=== PATIENT | male | born 1985 | race Caucasian/White ===

== ENCOUNTER 2019-11-28 15:47 | Inpatient (IN) ==
[2019-11-28] MEDS ORDERED: NS 1,000 ML IV ONE (16:11)
[2019-11-28] MEDS ORDERED: D50W SYRINGE IV PRN ×2 (16:11)
[2019-11-28] MEDS ORDERED: POTASSIUM CHLORIDE 10% LIQUID PO PRN (16:11)
[2019-11-28] MEDS ORDERED: SODIUM PHOSPHATE 30 MMOL in D5W 250 ML IV PRN (16:11)
[2019-11-28] MEDS ORDERED: POTASSIUM CHLORIDE 20 MEQ/SWI 20 MEQ/100 ML IVPB IV PRN ×2 (16:11)
[2019-11-28] MEDS ORDERED: HUMULIN R IV ONE (16:11)
[2019-11-28] MEDS ORDERED: POTASSIUM CHLORIDE 20% LIQUID PO PRN (16:11)
[2019-11-28] MEDS ORDERED: MAGNESIUM SULFATE 2 GM/S.W.I. 2 GM/50 ML IVPB IV PRN (16:11)
[2019-11-28] MEDS ORDERED: SODIUM BICARBONATE 8.4% 100 MEQ in STERILE WATER INJ. 500 ML IV PRN (16:11)
[2019-11-28] MEDS ORDERED: HUMULIN R 100 UNIT in NS 100 ML IV SCH (16:15)
[2019-11-28 16:23] LABS: URINE SOURCE CLEAN CATCH
[2019-11-28 16:26] LABS: HEMATOCRIT 43.9 % (42.0-52.0); HEMOGLOBIN 15.9 g/dL (14.0-18.0); MCH 28.6 PG (27-31); MCHC 36.2 g/dL (33-37); RBC 5.56 XMIL (4.7-6.1); RDW 11.7 % (11.5-14.5); WBC 6.62 X1000 (4.8-10.8)
[2019-11-28 16:29] LABS: BILIRUBIN URINE NEGATIVE (NEGATIVE); BLOOD URINE NEGATIVE (NEGATIVE); COLOR YELLOW; GLUCOSE URINE >1000 mg/dL (NEGATIVE); KETONE URINE 40 mg/dL (NEGATIVE); LEUKOCYTES URINE NEGATIVE (NEGATIVE); NITRITE URINE NEGATIVE (NEGATIVE); PH URINE 6.5; PROTEIN URINE NEGATIVE (NEGATIVE); SP GRAVITY URINE 1.027; TURBIDITY URINE CLEAR (CLEAR); UROBILINOGEN URINE NORMAL (NORMAL)
[2019-11-28 16:34] LABS: BE 1.2 mmoll (-3.0-3.0); BLOOD TYPE ARTERIAL; HCO3-(ACT) 25.7 mmoll (20.0-26.0); METHB 1.1 % (0.0-1.5); O2(CT) 21.3 mL/dL (15.0-23.0); O2HB 93.4 % (95.0-99.0); PCO2(98.6) 37 mmHg (35-45); PO2(98.6) 77 mmHg (60-100); SAMPLE BLOOD; SAO2 97.8 % (95.0-100.0); THB 16.2 g/dL (11.5-17.4); pH(98.6) 7.44 (7.35-7.45)
[2019-11-28 16:36] LABS: MODALITY ROOM AIR
[2019-11-28 16:37] LABS: ALLEN TEST NO
[2019-11-28 16:39] LABS: UR EPITHELIAL CELLS <10 /HPF (<10); URINE BACTERIA 2+ /HPF; URINE WBC <10 /HPF (<10); URINE YEAST NONE SEEN
[2019-11-28 16:40] LABS: URINE CASTS NONE SEEN; URINE CRYSTALS NONE SEEN; URINE SMALL ROUND CELLS NONE SEEN
[2019-11-28 16:45] LABS: UR AMPHETAMINES QUAL NONE DETECTED (NONE DETECT); UR BARBITUATES QUAL NONE DETECTED (NONE DETECT); UR BENZODIAZEPIN QUAL NONE DETECTED (NONE DETECT); UR CANNABINOIDS QUAL NONE DETECTED (NONE DETECT); UR COCAINE QUAL NONE DETECTED (NONE DETECT); UR METHADONE QUAL NONE DETECTED (NONE DETECT); UR METHAMPHETAMINE QUAL NONE DETECTED (NONE DETECT); UR OPIATES QUAL NONE DETECTED (NONE DETECT); UR OXYCODONE QUAL NONE DETECTED (NONE DETECT); UR PCP QUAL NONE DETECTED (NONE DETECT); UR PROPOXYPHENE QUAL NONE DETECTED (NONE DETECT); UR TCA QUAL NONE DETECTED (NONE DETECT)
[2019-11-28 16:56] LABS: ESTIMATED GFR > 60
[2019-11-28] MEDS: NS 1,000 ML IV SCH ×2 (17:07→20:10)
[2019-11-28 17:12] LABS: AGAP 13; ALBUMIN 3.4 g/dL (3.5-5.0); ALKALINE PHOSPHATASE 695 U/L (32-122); BUN 8 mg/dL (8-22); CALCIUM 8.9 mg/dL (8.8-10.2); CHLORIDE 85 mmol/L (98-107); CK PROFILE 39 U/L (24-204); COSMO 264; CREATININE 0.3 mg/dL (0.7-1.2); GLUCOSE 380 mg/dL (70-104); GOT 2828 U/L (10-34); GPT 3362 U/L (10-44); MAGNESIUM 1.8 mg/dL (1.5-2.7); PHOSPHORUS 3.7 mg/dL (2.7-4.5); POTASSIUM 3.8 mmol/L (3.5-5.1); SODIUM 124 mmol/L (136-145); TCO2 25 mmol/L (25-35); TOTAL PROTEIN 6.9 g/dL (6.3-8.3)
[2019-11-28 17:22] LABS: ACETONE SERUM NEGATIVE (NEGATIVE)
--- NOTE | 2019-11-28 18:12 | Diag Imaging Result Doc PS360 ---
EXAM: CT ABD/PELVIS W/IV CONT ONLY 11/28/2019 HISTORY: abd pain TECHNIQUE: This exam was performed using automated exposure control, adjustment of mA or kV according to patient size, and/or use of iterative reconstruction technique. COMMENT: The current study is compared with 07/02/2017. There is no evidence of acute disease in the visualized portion of the chest. The spleen and adrenal glands are within normal limits. There is marked pericholecystic edema. There is worsened periportal adenopathy. There are no apparent stones. The liver is otherwise unremarkable. The kidneys are without evidence of hydronephrosis or mass. There is stool in the colon. Small bowel is not distended. The aorta is not distended. The pancreas is unremarkable. Pelvis: The appendix is normal in appearance. The urinary bladder is not distended. There is a small amount of free fluid in the rectovesical pouch. There is formed stool in the rectum. There is a bone island in the right greater trochanter. There is no evidence of acute bony abnormality. IMPRESSION: Acute acalculous cholecystitis. Electronically signed by Jesus Lizarraga 11/28/2019 6:10 PM
--- NOTE | 2019-11-28 18:24 | EKG Report ---
Test Performed on : 11/28/2019 6:19:33 PM Test Reason : possible DKA Blood Pressure : / mmHG Vent. Rate : 091 BPM Atrial Rate : 091 BPM P-R Int : 160 ms QRS Dur : 100 ms QT Int : 354 ms P-R-T Axes : 073 084 066 degrees QTc Int : 435 ms Normal sinus rhythm. Nonspecific T wave abnormality Abnormal ECG No previous ECGs available Unconfirmed Result
[2019-11-28] MEDS ORDERED: ZOFRAN IV PRN (19:05)
[2019-11-28] MEDS ORDERED: TYLENOL PO PRN (19:05)
[2019-11-28] MEDS: HUMALOG (PARKWAY) SUBQ SCH (21:56)
[2019-11-28] MEDS: ZOSYN 3.375 GM in NS 50 ML IV SCH (21:57)
[2019-11-29] MEDS: ZOSYN 3.375 GM in NS 50 ML IV SCH ×4 (01:13→19:36)
[2019-11-29] MEDS: HUMALOG (PARKWAY) SUBQ SCH ×4 (06:09→20:57)
[2019-11-29 07:00] LABS: HEMATOCRIT 38.1 % (42.0-52.0); HEMOGLOBIN 13.4 g/dL (14.0-18.0); MCH 28.2 PG (27-31); MCHC 35.2 g/dL (33-37); MPV 10.3 FL (7.4-10.4); RBC 4.76 XMIL (4.7-6.1); RDW 11.8 % (11.5-14.5); WBC 6.02 X1000 (4.8-10.8)
[2019-11-29 07:15] LABS: AGAP 13; ALBUMIN 2.7 g/dL (3.5-5.0); ALKALINE PHOSPHATASE 549 U/L (32-122); BUN 6 mg/dL (8-22); CALCIUM 7.7 mg/dL (8.8-10.2); CHLORIDE 95 mmol/L (98-107); COSMO 263; CREATININE 0.2 mg/dL (0.7-1.2); ESTIMATED GFR > 60; GLUCOSE 183 mg/dL (70-104); MAGNESIUM 1.7 mg/dL (1.5-2.7); SODIUM 130 mmol/L (136-145); TCO2 22 mmol/L (25-35); TOTAL PROTEIN 5.9 g/dL (6.3-8.3)
[2019-11-29 07:28] LABS: GOT 2857 U/L (10-34); GPT 2864 U/L (10-44)
[2019-11-29] MEDS: NS 1,000 ML IV SCH ×2 (08:14→10:29)
[2019-11-29] MEDS ORDERED: KLOR-CON PO ONE (08:49)
--- NOTE | 2019-11-29 08:51 | Diag Imaging Result Doc PS360 ---
EXAM: US ABDOMEN-COMPLETE HISTORY: cholecystitis? TECHNIQUE: Abdominal ultrasound COMPARISON: CT from 11/28/2019 FINDINGS: Normal inferior vena cava. No abdominal aortic aneurysm. Normal pancreatic body. Portions of the head and tail are obscured. Questionable hypoechoic nodule in the pancreatic head, however, no nodule identified in this location on the recent CT. Normal liver. There is thickening to the gallbladder wall. There is sludge within the gallbladder. Normal kidneys. No hydronephrosis. Normal spleen. IMPRESSION: Acute cholecystitis Electronically signed by Ivan Rachel 11/29/2019 8:49 AM
[2019-11-29 09:36] LABS: HEMOGLOBIN A1C 14.7 % (4.8-6.0)
--- NOTE | 2019-11-29 10:17 | HISTORY AND PHYSICAL ---
PRIMARY CARE PHYSICIAN: None. CHIEF COMPLAINT: Increased thirst, polyuria, nausea, some weight loss over the past month that has progressively worsened. Also reports extreme fatigue. Workup in the emergency room showed a sodium of 124. His glucose was 380. Total bilirubin of 6.20 with an AST of 2828, ALT 3362. Acetone level was negative. Urine drug screen was negative. We did a CT of the abdomen and pelvis that showed an acute acalculous cholecystitis. We did an abdominal ultrasound that also showed acute cholecystitis. He does not have a history of diabetes or any medical problems previously diagnosed so he will be admitted for further evaluation and treatment. PAST MEDICAL HISTORY: None. PAST SURGICAL HISTORY: None. FAMILY HISTORY: His father had diabetes. SOCIAL HISTORY: Currently lives alone. Smokes 1 pack of cigarettes a day. Denied any alcohol last used meth approximately 2 to 4 weeks ago. ALLERGIES TO: Bupropion. HOME MEDICATIONS: He does not take any medications on a routine basis. LABORATORY DATA: Showed a white blood cell count of 6.62, hemoglobin 15.9, hematocrit 43.9, platelets 250,000. ABG on room air showed a pH of 7.44, pCO2 of 37, PO2 77, bicarb 25.7, a sodium of 124, potassium 3.8, chloride 85, CO2 25, anion gap of 13, BUN of 8, creatinine 0.3, glucose 380, magnesium 1.8, total bilirubin of 6.20, AST of 2828, ALT of 3362. Cardiac enzyme was negative. Amylase of 27, lipase 35. Plasma lactate of 2. Urinalysis was negative except for 2+ bacteria. Acetone level was negative. Urine drug screen showed none detected. CT of the abdomen and pelvis showed an acute acalculous cholecystitis. Abdomen ultrasound showed an acute cholecystitis. EKG showed normal sinus rhythm at 91. REVIEW OF SYSTEMS: He denied any fever, chills, blurred vision, dizziness. He has had increased thirst, increased urination, fatigue. Denied any chest pain, coughing, shortness of breath. Denied any abdominal pain, nausea, vomiting, burning or hurting with urination. PHYSICAL EXAMINATION: On arrival he had a temperature of 98.4 degrees, pulse 99, respirations 18, blood pressure 137/91 saturating 98% on room air. GENERAL: This is a 34-year-old male who is lying in the bed and answers questions appropriately. HEENT: Normocephalic, atraumatic. Normal ENT inspection. Oropharynx and nares are clear. EYES: Pupils are equal, round, reactive to light and accommodation. Extraocular movements are intact. NECK: Normal inspection, normal range of motion. LUNGS: Clear to auscultation bilaterally with equal lung expansion and chest wall movement. HEART: With regular rate and rhythm. No murmurs, rubs, or gallops. ABDOMEN: Soft, nontender, nondistended. Bowel sounds are present x4 quadrants. MUSCULOSKELETAL: He had 5/5 strength x4 extremities. NEUROLOGICAL: The cranial nerves 2-12 appear grossly intact. ASSESSMENT: 1. Acute acalculous cholecystitis. 2. Elevated liver function tests. 3. HONK ]with diabetes mellitus, new onset. 4. Hyponatremia. 5. Tobacco abuse. 6. Methamphetamine abuse. PLAN: He was admitted to the medical unit at [place]. We are holding him NPO. We are going to check a hemoglobin A1c and a TSH. We are going to give him 40 mEq of potassium now as his potassium this morning on labs was decreased down to 3.0. We will place him on pattern blood sugars with sliding scale insulin, normal saline at 75 mL an hour. We are going to consult surgery. He will most likely be transferred over to the [facility] for further evaluation and treatment by surgery for his cholecystitis. We will give him a nicotine patch 21 mg transdermally daily. Further orders after seen by attending. We will recheck a CBC and CMP in the a.m. Dictated by DEVAN Chung for Sarkis Roberts MD cc: DEVAN Chung MD [facility]
[2019-11-29] MEDS: NICODERM PATCH TD SCH (10:24)
--- NOTE | 2019-11-29 17:19 | HISTORY AND PHYSICAL ---
CHIEF COMPLAINT: Elevated blood sugar. HISTORY OF PRESENT ILLNESS: The patient is a 34-year-old male who presented to the emergency department with increased thirst, polyuria, nausea, abdominal pain, and weight loss. Symptoms have been gradually worsening over the past several weeks. States the last time he used meth was approximately 2 weeks ago. He was recently seen by urgent care and was told that his blood sugars were elevated and to come to the ER. ALLERGIES: Wellbutrin, causing a rash. MEDICATIONS: No current medications. PAST MEDICAL HISTORY: No chronic active medical problems. SOCIAL HISTORY: Patient does smoke. He does use illicit substances. Drinks occasionally. REVIEW OF SYSTEMS: As noted above, positive nausea, abdominal pain, polyuria, polydipsia, weight loss. He has had increasing fatigue for the last several weeks. Denies any headaches, blurred vision, change in vision. Denies any focalized numbness, tingling, weakness in his extremities. Denies any dysuria, frequency, urgency. Denies melena, hematochezia. FAMILY HISTORY: Noncontributory. PHYSICAL EXAMINATION: VITAL SIGNS: Reviewed and stable. Temperature 98 degrees, pulse 99, respiratory rate 18, BP 137/91, saturation 98% on room air. GENERAL: He is awake, alert. He is in no current respiratory distress. He is very pleasant. HEENT: Normocephalic. NECK: Supple. CARDIOVASCULAR: Regular rate. CHEST: Clear. ABDOMEN: Soft. Tender in the epigastric and right upper quadrant region. EXTREMITIES: Moves all extremities. NEUROLOGIC: No focal changes. SKIN: Warm and dry. No rashes. ASSESSMENT: 1. Hyponatremia, sodium 124. 2. Acute hepatitis, AST and ALT both are elevated. 3. New onset diabetes with blood sugar at 380. 4. Acute cholecystitis by CT. PLAN: We are going to admit the patient to the hospital, IV fluids, subcu insulin. We will follow his symptoms. We will place him on Zosyn, keep him NPO, check labs in the a.m. as well as an ultrasound of his gallbladder. Assuming the ultrasound is abnormal, we will consult Cardiology. cc: Sarkis Roberts MD
--- NOTE | 2019-11-29 17:24 | PROGRESS NOTE ---
DATE: 11/29/2019 SUBJECTIVE: Patient notes that he is feeling better. Still having some mild right upper quadrant pain. However, notes that he is hungry and would like to eat. OBJECTIVE: Vital Signs: Reviewed. Temp 98.2 degrees, pulse 82, respiratory rate 18, BP 122/72. General: Patient is sitting up on the side of the bed. He is awake, alert. He is in no distress. HEENT: Normocephalic. Neck: Supple. Cardiovascular: Regular rate. Chest: Clear. Abdomen: Soft. Tender in the right upper quadrant, although very mildly. No epigastric tenderness. Extremities: Moves all extremities. No edema. Neurologic: No focal changes. Skin: Warm and dry. No rashes. ASSESSMENT: 1. Hyponatremia. Sodium is better, from 124 up to 130. 2. Hypokalemia. We will replace with oral potassium. 3. Acute hepatitis, uncertain etiology. He does have markedly elevated blood sugars. He does have cholecystitis. He does have a history of illicit substance use. We will check hepatitis profile and we will follow. 4. Diabetes, new onset with an A1c of 14.3. Blood sugars currently are stable. 5. Acute cholecystitis. 6. Chronic tobacco abuse. PLAN: Overall, patient is stable. We are going to allow him to drink today. Keep him NPO after midnight. We talked with Dr. Emerson, Surgery, and he will require surgical intervention, although we are going to give his liver time to cool off as well as his electrolytes equilibrate prior to surgery if possible. cc: Sarkis Roberts MD
--- NOTE | 2019-11-29 19:58 | GENERAL SURGERY CONSULTATION ---
DATE: 11/29/2019 REASON FOR CONSULTATION: Possible cholecystitis. CHIEF COMPLAINT: Generalized malaise. HISTORY OF PRESENT ILLNESS: This is a 34-year-old gentleman who has history of intravenous methamphetamine abuse as recent as 2 weeks ago, who was recently diagnosed with new onset diabetes. During his workup, he was found to have elevated liver function tests with significant transaminitis and elevated bilirubin. Imaging was obtained that showed thickened park of his gallbladder but no biliary dilation. Ultrasound was consistent with cholecystitis, biliary sludge. He says that over the last 24 to 48 hours, he developed a generalized malaise, polydipsia, polyuria, and fatigue. He has not really had any abdominal pain. He has had only mild discomfort at times, but he seems relatively comfortable. He says bowel function was normal prior to this. He denies any history of hepatitis. He has been taking a lot of Tylenol he says. He used to drink heavily in the past but denies any significant alcohol use currently. He works in construction. I was consulted for input on his gallbladder. MEDICAL HISTORY: Intravenous drug abuse, methamphetamine recently, new onset diabetes. SURGICAL HISTORY: He has had no abdominal surgery. SOCIAL HISTORY: He does smoke a pack a day, history of alcohol but only occasionally now and uses intravenous methamphetamine. REVIEW OF SYSTEMS: Ten-point review of systems negative other than what is mentioned in HPI. FAMILY HISTORY: Reviewed. Negative for hepatitis or other hepatic disorders. MEDICATIONS: Quite a lot of Tylenol but no other prescription medication. PHYSICAL EXAMINATION: Vital signs: He is afebrile, pulse 88, blood pressure 133/87, oxygen saturation 99% on room air. General: He is alert in no acute distress. Moving comfortably about the room, appears to be in no discomfort. HEENT: He does have some scleral icterus but no cervical mass. Cardiovascular: Normal rate. Pulmonary: No increased work of breathing. Abdomen: Soft, nontender, nondistended. Integument: Warm and dry. Psychiatric: Appropriate affect. Neurologic: No asterixis. No focal deficits. Lymphatic: No cervical, axillary or inguinal adenopathy. Peripheral vascular: No lower extremity edema. LABORATORY DATA: White count 6, hematocrit is 38. His potassium is low at 3.0. His sodium has ranged from 124 to 130, creatinine is 0.2. Glucose has been as high as 380. His A1c is 14.7. His bilirubin is 6.40. AST and ALT are in the 2800 range. Alkaline phosphatase is elevated. His lipase was normal. Lactate was 2. Urinalysis had greater than a 1000 glucose but no nitrites, no leukocytes. UDS is negative. I reviewed his CT scan and his ultrasound. ASSESSMENT AND PLAN: This is a 34-year-old gentleman with acute hepatitis. He does have some thickening of the wall of his gallbladder. His abdominal exam is very benign. He is not complaining of any real gastrointestinal complaints. No abdominal discomfort. My concern is more of an acute hepatic injury, possibly Tylenol mediated, possibly methamphetamine, possible viral hepatitis. I agree with Dr. Roberts's workup of this prior to pursuing cholecystectomy. He is on antibiotics. We will continue minimal p.o. and IV fluids and electrolyte repletion. If he develops worsening gastrointestinal symptoms, we may consider more urgent cholecystectomy. Otherwise, we will follow his workup as I suspect more of a primary hepatic issue versus gallbladder causing this level of transaminitis and jaundice in the setting of normal caliber bile duct. We will follow along but no plans for urgent cholecystectomy at this juncture given his ongoing medical issues. cc: Leandro Emerson MD
[2019-11-30] MEDS: NS 1,000 ML IV SCH ×3 (00:24→23:05)
[2019-11-30] MEDS: ZOSYN 3.375 GM in NS 50 ML IV SCH ×4 (01:17→22:32)
[2019-11-30] MEDS: HUMALOG (PARKWAY) SUBQ SCH ×4 (06:20→22:32)
[2019-11-30 06:25] LABS: BASO# 0.05 X1000 (0.0-0.2); BASO% 0.8 % (0.0-0.8); EOS# 0.03 X1000 (0.0-0.7); EOS% 0.5 % (0.0-10.0); HEMATOCRIT 40.9 % (42.0-52.0); HEMOGLOBIN 14.5 g/dL (14.0-18.0); IMM GRAN# 0.04 X1000 (0.0-0.04); IMM GRAN% 0.6 % (0.0-0.5); LYMPH# 1.55 X1000 (1.2-3.4); LYMPH% 24.6 % (20.5-51.1); MCH 28.5 PG (27-31); MCHC 35.5 g/dL (33-37); MCV 80.4 FL (81-99); MONO# 0.88 X1000 (0.11-0.59); MPV 9.6 FL (7.4-10.4); NEUT# 3.74 X1000 (1.4-6.5); NEUT% 59.5 % (42.2-75.2); PLT 317 X1000 (130-400); RBC 5.09 XMIL (4.7-6.1); RDW 12.2 % (11.5-14.5); WBC 6.29 X1000 (4.8-10.8)
[2019-11-30 06:37] LABS: AGAP 11; ALBUMIN 3.1 g/dL (3.5-5.0); ALKALINE PHOSPHATASE 569 U/L (32-122); BUN 4 mg/dL (8-22); CALCIUM 8.1 mg/dL (8.8-10.2); CHLORIDE 93 mmol/L (98-107); COSMO 265; CREATININE 0.2 mg/dL (0.7-1.2); ESTIMATED GFR > 60; GLUCOSE 227 mg/dL (70-104); POTASSIUM 3.8 mmol/L (3.5-5.1); SODIUM 130 mmol/L (136-145); TCO2 26 mmol/L (25-35); TOTAL PROTEIN 6.4 g/dL (6.3-8.3)
[2019-11-30 06:46] LABS: GOT 2789 U/L (10-34); GPT 3045 U/L (10-44)
[2019-11-30 09:14] LABS: PROTIME 13.7 Seconds (11.0-16.0)
[2019-11-30] MEDS: NICODERM PATCH TD SCH (10:03)
--- NOTE | 2019-11-30 15:16 | PROGRESS NOTE ---
DATE: 11/30/2019 SUBJECTIVE: Patient notes that he feels okay. He is still having mild, if any, right upper quadrant pain. Still having some nausea. PHYSICAL EXAMINATION: He is afebrile, temperature 98 degrees, pulse 86, BP 133/87. General: Patient is pleasant. He is in no respiratory distress. HEENT: Normocephalic. Neck: Supple. Cardiovascular: Regular rate. Chest: Clear. Abdomen: Soft. Minimal if any right upper quadrant tenderness. Positive bowel sounds. Extremities: Moves all extremities. ASSESSMENT: 1. Acute hepatitis. Hepatitis panel is currently pending. 2. Hyperbilirubinemia. 3. Hyponatremia, improved. 4. Hypokalemia, improved. 5. Chronic tobacco abuse. 6. Recent methamphetamine abuse. 7. Abnormal ultrasound of his gallbladder. PLAN: We will continue patient in the hospital. When a bed is available, he will be transferred to [facility] for GI assessment. Currently, hepatitis panel is still pending. Unsure of the etiology of his current hepatitis. The patient currently has an MRCP pending. cc: Sarkis Roberts MD
[2019-12-01] MEDS: ZOSYN 3.375 GM in NS 50 ML IV SCH ×4 (03:47→20:46)
[2019-12-01 05:54] LABS: HEMATOCRIT 41.1 % (42.0-52.0); HEMOGLOBIN 14.6 g/dL (14.0-18.0); MCH 28.4 PG (27-31); MCHC 35.5 g/dL (33-37); MPV 9.4 FL (7.4-10.4); RBC 5.14 XMIL (4.7-6.1); RDW 12.6 % (11.5-14.5); WBC 7.17 X1000 (4.8-10.8)
[2019-12-01] MEDS: NS 1,000 ML IV SCH ×3 (06:38→20:45)
[2019-12-01] MEDS: HUMALOG (PARKWAY) SUBQ SCH ×4 (06:39→20:46)
[2019-12-01 06:43] LABS: AGAP 10; ALBUMIN 2.7 g/dL (3.5-5.0); ALKALINE PHOSPHATASE 487 U/L (32-122); BUN 3 mg/dL (8-22); CALCIUM 8.3 mg/dL (8.8-10.2); CHLORIDE 99 mmol/L (98-107); COSMO 271; CREATININE 0.2 mg/dL (0.7-1.2); ESTIMATED GFR > 60; GLUCOSE 206 mg/dL (70-104); GOT 1665 U/L (10-34); GPT 2167 U/L (10-44); MAGNESIUM 1.8 mg/dL (1.5-2.7); POTASSIUM 3.9 mmol/L (3.5-5.1); SODIUM 134 mmol/L (136-145); TCO2 24 mmol/L (25-35); TOTAL PROTEIN 6.2 g/dL (6.3-8.3)
[2019-12-01] MEDS: NICODERM PATCH TD SCH (08:19)
[2019-12-01 09:22] LABS: HEPATITIS PROFILE ACUTE SEE COMMENTS
--- NOTE | 2019-12-01 11:36 | Diag Imaging Result Doc PS360 ---
EXAM: MRI MRCP (ABD W/O CONTRAST) HISTORY: jaundice TECHNIQUE: MRCP with MIP images. COMPARISON: Recent CT and ultrasound FINDINGS: There continues to be marked thickening to the wall of the gallbladder. Normal common bile duct. No stone or stricture. Normal liver, spleen, pancreas, adrenal glands, kidneys, and aorta. IMPRESSION: Acute cholecystitis Electronically signed by Ivan Rachel 12/01/2019 11:34 AM
--- NOTE | 2019-12-01 15:00 | GENERAL SURGERY PROGRESS NOTE ---
DATE: 12/01/2019 SUBJECTIVE: He denies any abdominal pain. He has had no nausea, vomiting, in fact he is hungry. His bowels are functioning. He has had no fevers. OBJECTIVE: Vital Signs: Pulse 81 blood pressure 111/76. General: He is alert. Skin: He is slightly jaundiced on skin exam. Cardiovascular: Normal rate. Abdomen: Soft, nontender, even to deep palpation in the right upper quadrant. There is no peritonitis. He is nondistended. LABS: White count 7, hematocrit is 41. His creatinine is 0.2. His bilirubin remains elevated, although downtrending to 8.20. AST, ALT and alkaline phosphatase are also downtrending. ASSESSMENT AND PLAN: This is a 34-year-old gentleman with acute hepatitis of unclear etiology, but possibly drug mediated. His viral panels are negative. I have reviewed his magnetic resonance cholangiopancreatography, which shows no evidence of biliary obstruction. I have asked Dr. Means to obtain fractionated bilirubin levels to confirm this. He is also being worked up for other sources of possible hepatitis. Given his clinical findings and his lack of concern on abdominal examination, I have advised against cholecystectomy at this time, although he has numerous studies that show that the park of the gallbladder are quite thickened. I suspect that this is secondary to his underlying liver disease and not the cause. We will follow along. If he were to develop changes in abdominal examination, he may need more urgent cholecystectomy. However, in the setting of his acute hepatic dysfunction, I am worried about this. We will follow along. cc: Leandro Emerson MD
[2019-12-01 16:21] LABS: IRON SATURATION 29 %; TIBC 206 ug/dL; TOTAL IRON 60 ug/dL (53-167); UNBOUND IRON 146 ug/dL (112-346)
--- NOTE | 2019-12-01 18:27 | PROGRESS NOTE ---
DATE: 12/01/2019 SUBJECTIVE: The patient has no major complaints. OBJECTIVE: Blood pressure is 135/91, heart rate of 85, respiratory rate of 20, temperature 98.7 degrees, 100% saturation on room air. Generally he has orange-yellowish discoloration. He has bilateral scleral icterus.Cardiovascular: Tachycardic. No murmurs, gallops or rubs. Pulmonary exam: Bilateral breath sounds, clear to auscultation. GI: Soft, nontender, nondistended. Bowel sounds are positive. LABORATORY DATA: White count 7, hemoglobin and hematocrit 14 and 41, platelets 344,000. Basic was normal. Glucose 206, total bilirubin 8.2, AST and ALT of 1665 and 2167. Hepatitis panel was negative. ASSESSMENT AND PLAN: 1. Acute hepatitis, possibly ischemic versus toxic. I am going to continue to monitor and supportive care. Not entirely sure if this is related to number 2 problem. 2. Polysubstance abuse. He is not a drinker, but he does use methamphetamine regularly. He also does smoke, but no alcohol. We will continue to follow closely. 3. Abnormal gallbladder. Dr. Emerson feels like this is an acute injury issue and we are not going to pursue trying to get his stuff situated there, as far as a cholecystectomy at this point. We will continue to follow. cc: Evans Means MD
[2019-12-02] MEDS: ZOSYN 3.375 GM in NS 50 ML IV SCH ×4 (02:21→20:07)
[2019-12-02] MEDS: NS 1,000 ML IV SCH ×2 (04:49→12:41)
[2019-12-02] MEDS: HUMALOG (PARKWAY) SUBQ SCH ×4 (06:22→22:26)
[2019-12-02 06:28] LABS: INR 0.95; PROTIME 13.2 Seconds (11.0-16.0)
[2019-12-02 06:41] LABS: BASO# 0.04 X1000 (0.0-0.2); BASO% 0.4 % (0.0-0.8); EOS# 0.06 X1000 (0.0-0.7); EOS% 0.7 % (0.0-10.0); HEMATOCRIT 38.9 % (42.0-52.0); HEMOGLOBIN 13.5 g/dL (14.0-18.0); IMM GRAN# 0.03 X1000 (0.0-0.04); IMM GRAN% 0.3 % (0.0-0.5); LYMPH# 3.36 X1000 (1.2-3.4); LYMPH% 37.7 % (20.5-51.1); MCH 27.9 PG (27-31); MCHC 34.7 g/dL (33-37); MCV 80.4 FL (81-99); MONO# 1.24 X1000 (0.11-0.59); MONO% 13.9 % (1.7-9.3); MPV 9.5 FL (7.4-10.4); NEUT# 4.18 X1000 (1.4-6.5); PLT 457 X1000 (130-400); RBC 4.84 XMIL (4.7-6.1); RDW 12.9 % (11.5-14.5); WBC 8.91 X1000 (4.8-10.8)
[2019-12-02 06:56] LABS: AGAP 10; BUN 5 mg/dL (8-22); CHLORIDE 98 mmol/L (98-107); COSMO 266; CREATININE 0.2 mg/dL (0.7-1.2); ESTIMATED GFR > 60; GLUCOSE 211 mg/dL (70-104); POTASSIUM 3.5 mmol/L (3.5-5.1); SODIUM 131 mmol/L (136-145); TCO2 23 mmol/L (25-35)
[2019-12-02 06:59] LABS: DIRECT BILIRUBIN 6.6 mg/dL (0.00-0.20); TOTAL BILIRUBIN 7.4 mg/dL (0.20-1.00)
[2019-12-02 07:33] LABS: LYMPHS 47 % (21-51); MONO 14 % (1-9); SEGS 39 % (42-75)
[2019-12-02] MEDS: NICODERM PATCH TD SCH (12:42)
--- NOTE | 2019-12-02 15:33 | PROGRESS NOTE ---
DATE: 12/02/2019 SUBJECTIVE: Patient has no major complaints. OBJECTIVE: Vital Signs: Blood pressure 126/87, heart rate of 82, respiratory rate 18, temperature 98.2 degrees. Cardiovascular: Regular rate and rhythm. Pulmonary: Bilateral breath sounds clear to auscultation. Gastrointestinal: Soft, nontender, nondistended. Bowel sounds are positive. LABORATORY DATA: White count is 8, hemoglobin and hematocrit 13 and 38, platelets 457,000. INR is normal. Glucose is still high at 211. His A1c was 14.7. His ferritin is 2696. Total bilirubin has come down though to 7.4. His direct is 6.6. His AST is down to 1201 from 1665. His ALT is down to 1981 from 2167. ASSESSMENT/PLAN: 1. He has got an acute hepatic injury, which we think is from Tylenol, amphetamine and maybe some concurrent biliary disease. Dr. Emerson really feels this is unlikely to be cholecystitis but he certainly does not have choledocholithiasis. The ferritin level being elevated though makes me suspicious of hemochromatosis although this is not the right age for it, but he does have new onset diabetes, which is also a feature of hemochromatosis, "bronze" diabetes, so we will do follow-up hemochromatosis testing. 2. Polysubstance abuse. Again denies alcohol, methamphetamine is used regularly. We will continue to monitor. 3. Acalculous cholecystitis. At this point, Dr. Emerson is monitoring. We are not going to pursue surgery until the hepatitis portion is resolved. DISPOSITION: I think he needs another couple days of fluids just to let his numbers kind a trend downward normally. cc: Evans Means MD
--- NOTE | 2019-12-02 16:40 | PROVIDER DOCUMENTATION ---
This chart was entered by Josiane Abdi Scribe, acting as scribe for Cholo Wright CRNP. HPI-General Adult - General Chief Complaint: DKA ALERT Stated Complaint: ABNORMAL LABS Time Seen by Provider: 11/28/19 16:01 Source: patient Allergies/Adverse Reactions: Patient Allergies Allergy/AdvReac Type Severity Reaction Status Date / Time bupropion [From Wellbutrin] Allergy RASH Verified 11/28/19 18:11 Home Medications: Home Medication List Medication Instructions Recorded Confirmed Last Taken Type NK [No Home Medications] 11/28/19 11/28/19 Unknown History - History of Present Illness -Gen Adult Nature of Presenting Problems: Patient is a 34 year old male who presents with multiple complaints. States symptoms of increase in thirst, polyuria, nausea, abdominal pain, and weight loss. Reports symptoms have gradually worsened. Does not report vomiting. States being seen at an urgent care and was informed his labs were abnormal. Reports history of meth use. States last time using meth was 2 weeks ago. Location of Pain/Injury: reports: abdomen Pain Radiation: reports: no radiation Quality of Pain: reports: aching Severity: reports: mild Onset/Duration: reports: gradual Timing: reports: still present, getting worse Context/Activities at Onset: reports: light activity Associated Symptoms: reports: genitourinary problems (polyuria), nausea, other (increase in thirst and weight loss) Similar Symptoms Previously?: Yes Recently seen or treated by another doctor?: Yes Review of Systems - Adult - REVIEW OF SYSTEMS - ADULT Constitutional: reports: see HPI, weight loss. denies: chills, fever Eyes: reports: no symptoms reported Ears, Nose, Mouth & Throat: reports: no symptoms reported Cardiovascular: reports: no symptoms reported Respiratory: reports: no symptoms reported Gastrointestinal: reports: see HPI, abdominal pain, nausea. denies: vomiting Genitourinary: reports: no symptoms reported Musculoskeletal: reports: no symptoms reported Integumentary: reports: no symptoms reported Neurological: reports: no symptoms reported Psychiatric: reports: no symptoms reported Endocrine: reports: see HPI, increased thirst, polyuria. denies: excessive sweating Hematologic/Lymphatic: reports: no symptoms reported Allergic/Immunologic: reports: no symptoms reported All Other Systems: Reviewed and Negative Past History - Adult - PAST MEDICAL HISTORY-ADULT Review of Records: reports: Old Records Reviewed, Nursing Assessment Review, Medications Reviewed, Social history reviewed & non-contributory. Major Childhood Illnesses: reports: denies history Cardiovascular: reports: denies history Respiratory: reports: denies history Gastrointestinal: reports: denies history Obstetrical/Gynecological: reports: denies history Genitourinary: reports: denies history Musculoskeletal: reports: denies history Neurological: reports: denies history Psychiatric: reports: denies history Endocrine/Immune: reports: denies history Other Conditions: reports: denies history - PRIOR SURGERIES/PROCEDURES Surgical/Procedure History: reports: none - IMMUNIZATION STATUS Childhood Immunizations: See Nurse Assessment Flu Vaccine: See Nurse Assessment - FAMILY HISTORY Family History: reviewed, not pertinent - SOCIAL HISTORY Smoking: cigarettes, greater than 1 pack/day Provider spent 3-5 mins advising pt. on dangers of tobacco.: Discussed manners to quit use, and f/u contacts for add'l counseling. Substance Use: other (meth) Alcohol Use Frequency: occasionally Physical Exam-General - PHYSICAL EXAM-ADULT Initial Vital Signs Reviewed: Yes - CONSTITUTIONAL General Appearance: alert, no apparent distress, other (ill in appearance). negative: lethargic - HEAD, EARS, NOSE, MOUTH & THROAT HENMT: other (poor dentition and dry mucous membranes). negative: moist mucous membranes, angioedema - RESPIRATORY Respiratory: chest non-tender, lungs clear, normal breath sounds. negative: rhonchi, wheezing, increased rate - CARDIOVASCULAR Cardiovascular: regular rate, rhythm, no gallop, no murmur. negative: tachycardia - GASTROINTESTINAL (ABDOMEN) Abdominal Exam: normal bowel sounds, non tender, soft. negative: distended, guarding, rebound - MUSCULOSKELETAL Extremity: non-tender, normal inspection. negative: pedal edema - SKIN Integumentary: normal color, other (dry skin). negative: diaphoresis, pallor - NEUROLOGIC Neurologic: grossly normal. negative: aphasia, facial droop - PSYCHIATRIC Psych/Mental Status: normal mood/affect. negative: anxious, paranoid Progress - PLAN OF CARE/RESULTS Progress/Plan/Lab Results: Vital Signs - 8 hr 11/28/19 15:54 Temperature 98.4 F Pulse Rate 99 H Respiratory Rate 18 Blood Pressure 137/91 O2 Sat by Pulse Oximetry 98 Bedside Urine ED: Urine Bedside Start: 11/28/19 16:11 Freq: NOW Status: Inactive Protocol: Activity Type Activity Date Activity User E-Sign Co-Sign Detail Recorded Client Recorded Date Recorded By Edit Status 11/28/19 16:19 [id number] Active=>Inactive [id number] 11/28/19 16:19 [id number] Laboratory Results - last 24 hr 11/28/19 11/28/19 16:05 16:16 WBC 6.62 RBC 5.56 Hgb 15.9 Hct 43.9 MCV 79.0 L MCH 28.6 MCHC 36.2 RDW Std Deviation 11.7 Plt Count 250 MPV 10.0 Urine Source CLEAN CATCH Urine Color YELLOW Urine Turbidity CLEAR Urine pH 6.5 Ur Specific [place] 1.027 Urine Protein NEGATIVE Ur Glucose (Stick) >1000 A Ur Ketones (Stick) 40 A Urine Blood NEGATIVE Urine Nitrite NEGATIVE Urine Bilirubin NEGATIVE Urobilinogen Dipstick NORMAL Urine Leukocytes NEGATIVE Orders Category Date Time Status Cardiac Monitoring DIRECTED Care 11/28/19 16:11 Active FSBS/Accucheck Result Q1H Care 11/28/19 16:11 Active Hypoglycemia/FSBS <50 or Range of 50-70 PRN Care 11/28/19 16:11 Active Notify Physician ORDERED Care 11/28/19 16:11 Active Saline Loc DIRECTED Care 11/28/19 16:11 Active Saline Loc NOW Care 11/28/19 16:11 Active Vital Signs Order Q1H Care 11/28/19 16:11 Active ABG [RESP] Routine Lab 11/28/19 16:11 Ordered ACETONE SERUM [CHEM] Stat Lab 11/28/19 16:16 Received CBC WITH NO DIFF [HEME] Stat Lab 11/28/19 16:16 Completed CK PROFILE [SP CHEM] Stat Lab 11/28/19 16:16 Received COMPREHENSIVE METABOLIC PANEL [CHEM] Stat Lab 11/28/19 16:16 Received LACTATE, PLASMA [CHEM] Stat Lab 11/28/19 16:16 Received MAGNESIUM [CHEM] Stat Lab 11/28/19 16:16 Received PHOSPHORUS [CHEM] Stat Lab 11/28/19 16:16 Received TROPONIN T Stat Lab 11/28/19 16:16 Received URINALYSIS [URINALYSIS] Stat Lab 11/28/19 16:05 Results URINE DRUG SCREEN PL Stat Lab 11/28/19 16:05 Received URINE MANUAL MICROSCOPIC [URINALYSIS] Stat Lab 11/28/19 16:05 Results 0.9% Sodium Chloride Inj [Ns] 1,000 ml Med 11/28/19 16:15 Active IV 500 mls/hr 0.9% Sodium Chloride Inj [Ns] 1,000 ml Med 11/28/19 16:11 Active IV 999 mls/hr 0.9% Sodium Chloride Inj [Ns] 100 ml Med 11/28/19 16:15 Active Insulin Human Regular [Humulin R] 100 unit IV Per Protocol mls/hr Dextrose 50% Syringe [D50w Syringe] Med 11/28/19 16:11 Active 25 ml IV PRN PRN Dextrose 50% Syringe [D50w Syringe] Med 11/28/19 16:11 Active 50 ml IV PRN PRN Insulin Human Regular [Humulin R] Med 11/28/19 16:11 Discontinued 6.3 unit IV ONCE ONE Magnesium Sulfate 2 gm/S.w.i. Med 11/28/19 16:11 Ordered 2 gm in 50 ml IV ONCE PRN Potassium Chloride 10% Liquid Med 11/28/19 16:11 Active 20 meq PO ONCE PRN PRN Potassium Chloride 20 Meq/Swi Med 11/28/19 16:11 Active 20 meq in 100 ml IV ONCE PRN Potassium Chloride 20 Meq/Swi Med 11/28/19 16:11 Active 20 meq in 100 ml IV ONCE PRN Potassium Chloride 20% Liquid Med 11/28/19 16:11 Active 40 meq PO ONCE PRN PRN Sodium Bicarbonate 8.4% 100 meq Med 11/28/19 16:11 Active Water, Sterile Inj [Sterile Water Inj] 500 ml IV ONCE PRN Sodium Phosphate 30 mmol Med 11/28/19 16:11 Active Dextrose 5%-Water Inj [D5w] 250 ml IV ONCE PRN Hypoglycemia Stat Oth 11/28/19 16:11 Ordered EKG [EKG] Routine Ther 11/28/19 16:11 Ordered Result Diagrams: 12/02/19 05:50 12/02/19 05:50 - EKG 1 Time of EKG reading by physician:: 18:21 EKG Read and Signed by:: Ricardo Kinney EKG Interpretation (*Must complete 3 of following elements*): Normal Rate: 91 Rhythm: NSR [place]: normal QRS: normal [place] Interval: normal ST Wave: normal - CONSULTS/PCP/HOSPITALIST Notification #1 *Consult/PCP/Hospitalist*: Dr Roberts Time Discussed: 18:25 Reason/Comments: [facility]HS, acute cholecystitis Consult Disposition: Admit Departure - Departure Date of Disposition Decision: 11/28/19 Time of Disposition Decision: 20:39 DIAGNOSIS: Hyperosmolar non-ketotic state in patient with type 2 diabetes mellitus, Acute cholecystitis without calculus Disposition: ADMITTED INPATIENT 09 Certified Medical Emergency: Emergent Condition: Critical - Critical Care Note This patient required my direct & personal management of CC.: No Attestation - Physician/ JEANETTE Attestation Patient care was provided by Advanced Practice Provider:: Yes Advanced Practice Provider:: Cholo Wright Advanced Practice Provider documentation review:: The Mid-level provider documentation, treatment plan and medical decision making was reviewed by the physician who agrees with all treatment and medical decision making by the MLP. The physician spent face to face time with patient:: No Advanced Practice Provider documentation review:: Supervising physician onsite and consulted in the evaluation and care of this patient. The physician did not have a face to face encounter with the patient. This chart was documented by the indicated scribe, (Josiane Abdi Scribe) and accurately reflects the services I performed and decisions made by me, Cholo Wright CRNP, as attested by the provider's signature.
[2019-12-03] MEDS: NS 1,000 ML IV SCH ×2 (00:51→17:13)
[2019-12-03] MEDS: ZOSYN 3.375 GM in NS 50 ML IV SCH ×4 (01:23→19:53)
[2019-12-03] MEDS: HUMALOG (PARKWAY) SUBQ SCH ×4 (06:32→22:15)
[2019-12-03 06:43] LABS: BASO# 0.11 X1000 (0.0-0.2); BASO% 1.2 % (0.0-0.8); EOS# 0.08 X1000 (0.0-0.7); EOS% 0.8 % (0.0-10.0); HEMATOCRIT 41.3 % (42.0-52.0); HEMOGLOBIN 14.4 g/dL (14.0-18.0); IMM GRAN# 0.04 X1000 (0.0-0.04); IMM GRAN% 0.4 % (0.0-0.5); LYMPH# 4.02 X1000 (1.2-3.4); LYMPH% 42.3 % (20.5-51.1); MCH 28.2 PG (27-31); MCHC 34.9 g/dL (33-37); MONO# 1.55 X1000 (0.11-0.59); MONO% 16.3 % (1.7-9.3); MPV 9.6 FL (7.4-10.4); NEUT# 3.71 X1000 (1.4-6.5); PLT 478 X1000 (130-400); RDW 13.5 % (11.5-14.5); WBC 9.51 X1000 (4.8-10.8)
[2019-12-03 06:45] LABS: ALBUMIN 2.9 g/dL (3.5-5.0); DIRECT BILIRUBIN 4.9 mg/dL (0.00-0.20); TOTAL PROTEIN 6.6 g/dL (6.3-8.3)
[2019-12-03 07:31] LABS: EOS 2 % (1-10); LYMPHS 24 % (21-51); MONO 10 % (1-9); SEGS 58 % (42-75)
[2019-12-03 07:33] LABS: POIKILOCYTOSIS 1+; STOMATOCYTES OCCASIONAL; TARGET CELLS 1+
[2019-12-03] MEDS: NICODERM PATCH TD SCH (10:01)
--- NOTE | 2019-12-03 14:23 | PROGRESS NOTE ---
DATE: 12/03/2019 SUBJECTIVE: The patient has no major complaints. He seems better. He seems like he is more comfortable. OBJECTIVE: Vital Signs: Blood pressure is 126/91, heart rate of 76, respiratory rate of 18, temperature 98.5 degrees, satting 100% on room air. Cardiovascular: Regular rate and rhythm. Pulmonary: Bilateral breath sounds. Clear to auscultation. GI: Soft, nontender, nondistended. Bowel sounds were positive. LABORATORY DATA: White count is 9, hemoglobin and hematocrit 14 and 41, platelets 478. Total bilirubin is down to 6, direct 4.9. AST is down to 547, ALT is down to 1451. ESE was negative. Antimitochondrial antibody was negative. PROBLEM LIST: 1. Acute hepatitis, possibly from a toxin-related injury. He could have some underlying liver disease. Unclear. His father apparently has non-alcoholic steatohepatitis. It is very unclear what induced this. He does use amphetamines. He did take a steady amount of Tylenol before admission, so he could have had a direct injury. However, I am suspicious that there may be some underlying liver disease, but we are waiting on all the labs to come back. 2. New onset diabetes. We need to be monitoring his blood sugars, which they have been doing pretty well, but I am going to start some low-dose diabetic. We will start teaching him about checking his blood sugars and education and all those kinds of things as well. There is a possibility this could be hemochromatosis, but we will continue to monitor. DISPOSITION: Anticipate discharge next couple days, but he will need assistance with his medications and things of that nature. cc: Evans Means MD
[2019-12-03] MEDS: GLUCOTROL PO SCH (15:20)
[2019-12-03] MEDS ORDERED: TUMS PO PRN (15:56)
[2019-12-03] MEDS ORDERED: GLUCOPHAGE PO SCH (17:00)
--- NOTE | 2019-12-03 18:14 | GENERAL SURGERY PROGRESS NOTE ---
DATE: 12/03/2019 SUBJECTIVE: The patient denies abdominal pain, nausea or vomiting. He is tolerating his diet. He does report some heartburn. OBJECTIVE: He is afebrile. Vital signs are stable.General: He is awake, alert and oriented x3. No acute distress. GI: Soft, nontender, nondistended. LABORATORY DATA: White blood cell count is normal. Total bilirubin 6, direct bilirubin 4.9, AST 547, ALT 1451, alkaline phosphatase 402. ASSESSMENT AND PLAN: A 34-year-old male with acute hepatitis of unclear etiology. His liver function tests have somewhat improved. Symptomatically he has no significant abdominal symptoms. I will order him some Tums for his heartburn and indigestion, but no acute surgical plans at this time. cc: Branden Abdul MD
[2019-12-04] MEDS: ZOSYN 3.375 GM in NS 50 ML IV SCH ×3 (02:07→15:02)
[2019-12-04 05:54] LABS: BASO# 0.04 X1000 (0.0-0.2); BASO% 0.5 % (0.0-0.8); EOS# 0.09 X1000 (0.0-0.7); HEMATOCRIT 39.1 % (42.0-52.0); HEMOGLOBIN 13.6 g/dL (14.0-18.0); IMM GRAN# 0.01 X1000 (0.0-0.04); IMM GRAN% 0.1 % (0.0-0.5); LYMPH# 3.87 X1000 (1.2-3.4); LYMPH% 45.1 % (20.5-51.1); MCH 28.5 PG (27-31); MCHC 34.8 g/dL (33-37); MONO# 1.13 X1000 (0.11-0.59); MONO% 13.2 % (1.7-9.3); MPV 9.2 FL (7.4-10.4); NEUT# 3.45 X1000 (1.4-6.5); NEUT% 40.1 % (42.2-75.2); PLT 497 X1000 (130-400); RBC 4.77 XMIL (4.7-6.1); RDW 13.6 % (11.5-14.5); WBC 8.59 X1000 (4.8-10.8)
[2019-12-04] MEDS: NS 1,000 ML IV SCH ×3 (06:07→21:34)
[2019-12-04 06:15] LABS: AGAP 9; ALBUMIN 3.1 g/dL (3.5-5.0); ALKALINE PHOSPHATASE 371 U/L (32-122); BUN 7 mg/dL (8-22); CALCIUM 8.4 mg/dL (8.8-10.2); CHLORIDE 97 mmol/L (98-107); COSMO 262; CREATININE 0.4 mg/dL (0.7-1.2); ESTIMATED GFR > 60; GLUCOSE 229 mg/dL (70-104); GOT 272 U/L (10-34); POTASSIUM 3.7 mmol/L (3.5-5.1); SODIUM 128 mmol/L (136-145); TCO2 22 mmol/L (25-35); TOTAL PROTEIN 6.6 g/dL (6.3-8.3)
[2019-12-04 06:25] LABS: GPT 975 U/L (10-44)
[2019-12-04 06:57] LABS: EOS 1 % (1-10); LYMPHS 34 % (21-51); MONO 9 % (1-9); SEGS 49 % (42-75)
[2019-12-04 06:59] LABS: HYPOCHROM OCCASIONAL; LARGE PLATELETS OCCASIONAL; OVALOCYTES OCCASIONAL; POIKILOCYTOSIS 1+; POLYCHROM OCCASIONAL; STOMATOCYTES OCCASIONAL; TARGET CELLS 1+
[2019-12-04] MEDS: HUMALOG (PARKWAY) SUBQ SCH ×4 (07:15→21:33)
[2019-12-04] MEDS: GLUCOTROL PO SCH (09:52)
[2019-12-04] MEDS: NICODERM PATCH TD SCH (09:52)
[2019-12-04] MEDS ORDERED: GLUCOTROL PO ONE (17:38)
--- NOTE | 2019-12-04 18:49 | PROGRESS NOTE ---
DATE: 12/04/2019 SUBJECTIVE: The patient has no complaints. He is doing better every day. OBJECTIVE: Vital signs: Blood pressure 128/88, heart rate 73, respiratory rate 20, temperature 98.6 degrees, 100% on room air. Cardiovascular: Regular rate and rhythm. Pulmonary: Bilateral breath sounds. Clear to auscultation. GI: Was soft, nontender, nondistended. Bowel sounds are positive. LABORATORY DATA: His bilirubin is down to 3. His AST and ALT are down to 272 and 975. His sugars are still high and that is despite the addition of glipizide. I would really like to do metformin, but really no absolute need for it. I am not really sure why he is on Zosyn. I guess because of possibly cholecystitis, but his workup is negative, so I am going to stop the Zosyn for right now. He has been on it for 7 days. PLAN: Anticipate possible discharge tomorrow. We will see. He will need close follow-up for his liver tests. We will continue to monitor. cc: Evans Means MD
[2019-12-05] MEDS: HUMALOG (PARKWAY) SUBQ SCH ×3 (06:21→16:17)
[2019-12-05 06:23] LABS: HEMATOCRIT 38.1 % (42.0-52.0); HEMOGLOBIN 12.9 g/dL (14.0-18.0); MCH 27.7 PG (27-31); MCHC 33.9 g/dL (33-37); MCV 81.9 FL (81-99); MPV 9.9 FL (7.4-10.4); RBC 4.65 XMIL (4.7-6.1); RDW 13.5 % (11.5-14.5); WBC 8.09 X1000 (4.8-10.8)
[2019-12-05 06:41] LABS: AGAP 12; ALBUMIN 3.1 g/dL (3.5-5.0); ALKALINE PHOSPHATASE 368 U/L (32-122); BUN 7 mg/dL (8-22); CALCIUM 8.4 mg/dL (8.8-10.2); CHLORIDE 96 mmol/L (98-107); COSMO 266; CREATININE 0.3 mg/dL (0.7-1.2); ESTIMATED GFR > 60; GLUCOSE 263 mg/dL (70-104); GOT 208 U/L (10-34); POTASSIUM 4.2 mmol/L (3.5-5.1); SODIUM 129 mmol/L (136-145); TCO2 21 mmol/L (25-35); TOTAL PROTEIN 6.9 g/dL (6.3-8.3)
[2019-12-05 06:51] LABS: GPT 748 U/L (10-44)
[2019-12-05 07:49] VITALS: BP 125/76
[2019-12-05] MEDS ORDERED: GLUCOTROL PO SCH (09:00)
[2019-12-05] MEDS: NICODERM PATCH TD SCH (09:47)
[2019-12-05] MEDS ORDERED: TYLENOL PO PRN (10:45)
[2019-12-05] MEDS ORDERED: MOTRIN PO ONE (11:44)
[2019-12-05] MEDS: NS 1,000 ML IV SCH (12:33)
== END 2019-12-05 18:55 | disposition home or self-care (01) | DRG 638 ==
LOC: P.ED 15:47 → P.MEDSURG 20:07 → SUATTDRO 20:07
PROVIDERS: ATTEND Internal Medicine